=== PATIENT | female | born 1960 | race Caucasian/White ===

== ENCOUNTER 2019-02-05 10:37 | Emergency (ER) | payer OTHER, SELFPAY ==
[2019-02-05 10:37] VITALS: BP 109/52; PULSE 48; RESP 18; TEMP 36.8; O2SAT 99
--- NOTE | 2019-02-05 10:48 | DI.RAD.S_ITS ---
PROCEDURE: XR SACRUM COCCYX MIN 2V INDICATIONS: fall, pain lumbar / sacral area TECHNIQUE: 3 views of the sacrum and coccyx acquired. COMPARISON: None. FINDINGS: Bones: Appearance of fracture is identified on the anterior aspect of L3 including the superior endplate. Soft tissues: Visualized bowel gas pattern is normal. No suspicious soft tissue densities. IMPRESSION: Appearance of L3 fracture appearing acute/subacute as above. As clinically indicated, CT may be obtained for further evaluation. Dictated by: Nikkie Torres M.D. on 02/05/2019 at 12:06 Approved by: Nikkie Torres M.D. on 02/05/2019 at 12:07
--- NOTE | 2019-02-05 10:48 | DI.RAD.S_ITS ---
PROCEDURE: XR LUMBAR SPINE 2-3V INDICATIONS: fall, pain lumbar sacral TECHNIQUE: 3 views of the lumbar spine were acquired. COMPARISON: None. FINDINGS: Bones: 5 [id number] vertebrae are present. There is trace retrolithesis of L1 on L2, L2 on L3, L3 on L4. There is an appearance of fracture at the anterior aspect of L3 involving the superior endplate.. No suspicious bony lesions. Soft tissues: Overlying bowel gas pattern is normal. No suspicious soft tissue calcifications. IMPRESSION: Appearance of acute/subacute anterior fracture at L3. CT may be obtained as clinically indicated for further evaluation. Dictated by: Nikkie Torres M.D. on 02/05/2019 at 11:39 Approved by: Nikkie Torres M.D. on 02/05/2019 at 12:06
[2019-02-05] MEDS: ACETAMINOPHEN 325 MG TABLET 975 MG PO (11:15)
[2019-02-05] MEDS: CYCLOBENZAPRINE 10 MG TABLET PO (11:42)
--- NOTE | 2019-02-05 12:03 | ED.BACK ---
HPI - Back Pain/Injury <Robyn Patiño, [employer]ER-BC - Last Filed: 02/05/19 20:31> General Chief Complaint: Back Pain/Injury Stated Complaint: GLF, hip and low back pain Time Seen by Provider: 02/05/19 11:06 Source: patient and family Mode of arrival: EMS Limitations: no limitations History of Present Illness HPI Narrative: The patient is a 58-year-old female with history of seizure activity nonsmoker who presents after a ground level fall. She presented by EMS on a backboard prior to my arrival to the emergency department. She states that she was walking her dog, who pulled her to kelvin a rabbit. She let go of the dog, but fell landing on the right side of her buttock. She states the pain was so bad she could not get up. She denies any numbness or tingling. She denies any incontinence of bowel or bladder, she denies any saddle anesthesia. She states that her low back has been hurting for for the past several weeks. She has applied ice and heat at home. She denies hitting her head. She denies any neck pain. She does not take any blood thinners. Related Data Home Medications Medication Instructions Recorded Confirmed diazepam 10 mg PO BID PRN 02/05/19 02/05/19 escitalopram oxalate 10 mg PO DAILY 02/05/19 02/05/19 lacosamide [Vimpat] 50 mg PO QAM 02/05/19 02/05/19 lacosamide [Vimpat] 100 mg PO BEDTIME 02/05/19 02/05/19 levetiracetam [Keppra] 1,250 mg PO BID 02/05/19 02/05/19 Previous Rx's Medication Instructions Recorded lidocaine 1 patch TOP DAILY #15 each 02/05/19 tramadol 50 mg PO TID PRN #10 tab 02/05/19 Allergies Allergy/AdvReac Type Severity Reaction Status Date / Time diphenhydramine Allergy Severe Seizure Verified 02/05/19 10:44 [From Benadryl] ibuprofen Allergy Severe Seizure Verified 02/05/19 10:44 bacitracin Allergy Mild Rash Verified 02/05/19 10:44 [From Neosporin ([id number])] neomycin Allergy Mild Rash Verified 02/05/19 10:44 [From Neosporin ([id number])] polymyxin B Allergy Mild Rash Verified 02/05/19 10:44 [From Neosporin ([id number])] Review of Systems <KATHERINE Sandy - Last Filed: 02/05/19 20:31> Review of Systems GENERAL: Denies chills, fatigue, malaise, fever, sweats. HEENT: Denies sinus pain, ear pain, sore throat, difficulty swallowing, dizziness. RESPIRATORY: Denies dyspnea, cough, wheezing, hemoptysis, sputum. CARDIOVASCULAR: Denies chest pain, palpitations, orthopnea, edema, GASTROINTESTINAL: Denies nausea, vomiting, abdominal pain, diarrhea, constipation, melena. : Denies dysuria, frequency, incontinence, hematuria, urinary retention. MUSCULOSKELETAL: See HPI SKIN: Denies rash, skin lesions, or other NEUROLOGIC: Denies weakness, headache, numbness, change in speech, confusion, seizures, incoordination. PSYCHIATRIC: No concerning psychosocial issues. 12 point review of systems is negative except for those stated above PFSH <KATHERINE Sandy - Last Filed: 02/05/19 20:31> Medical History Seizure (Acute) Social History Smoking Status: Never smoker Social History Smoking Status: Never smoker Exam <KATHERINE Sandy - Last Filed: 02/05/19 20:31> Narrative Exam Narrative: GENERAL: This is a well-nourished, well-developed patient, lying on her back HEAD: Atraumatic. Normocephalic. No temporal or scalp tenderness. EYES: Pupils equal round and reactive. Extraocular motions intact. No scleral icterus. No injection or drainage. ENT: Nose without bleeding, purulent drainage or septal hematoma. Throat without erythema, tonsillar hypertrophy or exudate. Uvula midline. Airway patent. NECK: Trachea midline. No JVD or lymphadenopathy. Supple, nontender, no meningeal signs. CARDIOVASCULAR: Regular rate and rhythm bradycardic per patient's normal RESPIRATORY: Clear to auscultation. Breath sounds equal bilaterally. No wheezes, rales, or rhonchi. No cough. No increased respiratory effort. No accessory muscle use. GASTROINTESTINAL: Abdomen soft, non-tender, nondistended. No hepato-splenomegaly, or palpable masses. No guarding. EXTREMITIES: No clubbing, cyanosis, or edema. No joint tenderness, effusion, or edema noted. Strength is equal upper and lower extremities bilaterally. Positive pedal pulses. BACK: No pain to C-spine or T spine palpation. Pain to palpation of the L-spine and across lower back. Pain to sacral pressure. NEURO: AOx3. SKIN: No rash or erythema. No erythema ecchymosis abrasion laceration noted home lower back Initial Vital Signs Initial Vital Signs: Vital Signs Temperature 98.3 F 02/05/19 10:37 Pulse Rate 48 L 02/05/19 10:37 Respiratory Rate 18 02/05/19 10:37 Blood Pressure 109/52 L 02/05/19 10:37 Pulse Oximetry 99 02/05/19 10:37 <Adeline Bernstein MD - Last Filed: 02/05/19 20:36> Initial Vital Signs Initial Vital Signs: Vital Signs Temperature 98.3 F 02/05/19 10:37 Pulse Rate 48 L 02/05/19 10:37 Respiratory Rate 18 02/05/19 10:37 Blood Pressure 109/52 L 02/05/19 10:37 Pulse Oximetry 99 02/05/19 10:37 Course <JYOTHI Sandy-BC - Last Filed: 02/05/19 20:31> Orders Ordered: ED Orders 02/05/19 12:28 CT lumbar spine wo con Stat 02/05/19 15:04 Complete Blood Count AUTO DIFF Stat Comprehensive Metabolic Panel Stat Discontinued Medications Acetaminophen (Tylenol) 975 mg PO NOW ONE Stop: 02/05/19 10:49 Last Admin: 02/05/19 11:15 Dose: 975 mg Cyclobenzaprine HCl (Flexeril) 10 mg PO NOW ONE Stop: 02/05/19 11:42 Last Admin: 02/05/19 11:42 Dose: 10 mg Sodium Chloride (Normal Saline 0.9%) 1,000 mls @ 1,000 mls/hr IV BOLUS ONE Stop: 02/05/19 15:56 Last Infusion: 02/05/19 16:02 Dose: 0 mls/hr Admin: 02/05/19 15:12 Dose: 1,000 mls/hr Sodium Chloride (Normal Saline 0.9%) 1,000 mls @ 1,000 mls/hr IV BOLUS ONE Stop: 02/05/19 15:56 Last Infusion: 02/05/19 17:10 Dose: 0 mls/hr Admin: 02/05/19 16:03 Dose: 1,000 mls/hr Lidocaine (Lidoderm) 1 each TOP DAILY WHITNEY Last Admin: 02/05/19 16:59 Dose: 1 each Tramadol HCl (Ultram) 50 mg PO NOW ONE Stop: 02/05/19 13:29 Last Admin: 02/05/19 13:47 Dose: 50 mg Vital Signs - 8 hr 02/05/19 15:09 02/05/19 16:32 02/05/19 17:30 Pulse Rate 44 L 60 57 L Respiratory Rate 17 19 17 Blood Pressure [Left Arm] 110/31 L 103/52 L 117/68 Pulse Oximetry 99 99 98 <Adeline Bernstein MD - Last Filed: 02/05/19 20:36> Orders Ordered: ED Orders 02/05/19 12:28 CT lumbar spine wo con Stat 02/05/19 15:04 Complete Blood Count AUTO DIFF Stat Comprehensive Metabolic Panel Stat Discontinued Medications Acetaminophen (Tylenol) 975 mg PO NOW ONE Stop: 02/05/19 10:49 Last Admin: 02/05/19 11:15 Dose: 975 mg Cyclobenzaprine HCl (Flexeril) 10 mg PO NOW ONE Stop: 02/05/19 11:42 Last Admin: 02/05/19 11:42 Dose: 10 mg Sodium Chloride (Normal Saline 0.9%) 1,000 mls @ 1,000 mls/hr IV BOLUS ONE Stop: 02/05/19 15:56 Last Infusion: 02/05/19 16:02 Dose: 0 mls/hr Admin: 02/05/19 15:12 Dose: 1,000 mls/hr Sodium Chloride (Normal Saline 0.9%) 1,000 mls @ 1,000 mls/hr IV BOLUS ONE Stop: 02/05/19 15:56 Last Infusion: 02/05/19 17:10 Dose: 0 mls/hr Admin: 02/05/19 16:03 Dose: 1,000 mls/hr Lidocaine (Lidoderm) 1 each TOP DAILY WHITNEY Last Admin: 02/05/19 16:59 Dose: 1 each Tramadol HCl (Ultram) 50 mg PO NOW ONE Stop: 02/05/19 13:29 Last Admin: 02/05/19 13:47 Dose: 50 mg Vital Signs - 8 hr 02/05/19 15:09 02/05/19 16:32 02/05/19 17:30 Pulse Rate 44 L 60 57 L Respiratory Rate 17 19 17 Blood Pressure [Left Arm] 110/31 L 103/52 L 117/68 Pulse Oximetry 99 99 98 MDM - Back Pain/Injury <JYOTHI Sandy- - Last Filed: 02/05/19 20:31> Lab Data Result diagrams: 02/05/19 15:04 02/05/19 15:04 Lab Results 02/05/19 02/05/19 Range/Units 15:04 15:04 WBC 10.1 (4.5-11.0) X10^3/uL RBC 4.43 (4.0-5.2) X10^6/uL Hgb 13.6 (12.0-16.0) g/dL Hct 39.4 (36-46) % MCV 89.0 (80-100) fL MCH 30.6 (26-34) PG MCHC 34.4 (30-36) % RDW 13.4 (11.6-14.8) % Plt Count 207 (150-400) X10^3/uL Neut % (Auto) 70.2 (50-75) % Lymph % (Auto) 22.8 L (25-40) % [place] % (Auto) 6.2 (3-14) % Eos % (Auto) 0.3 L (2-4) % Baso % (Auto) 0.5 (0-2) % Neut # (Auto) 7100 H (6674-0787) /uL Lymph # (Auto) 2300 (0037-9404) /uL [place] # (Auto) 600 (0-900) /uL Eos # (Auto) 0 (0-450) /uL Baso # (Auto) 100 (0-100) /uL Sodium 142 (137-145) mmol/L Potassium 3.7 (3.4-5.1) mmol/L Chloride 105 (98-107) mmol/L Carbon Dioxide 28 (22-32) mmol/L BUN 12 (7-17) mg/dL Creatinine 0.80 (0.52-1.04) mg/dL Estimated GFR > 60.0 (>60) mL/min BUN/Creatinine Ratio 15.0 (6-22) Glucose 123 H (70-100) mg/dL Calcium 9.3 (8.4-10.2) mg/dL Total Bilirubin 0.6 (0.2-1.3) mg/dL AST 31 (14-36) IU/L ALT 24 (9-52) IU/L Alkaline Phosphatase 82 (38-126) U/L Total Protein 7.7 (6.3-8.2) g/dL Albumin 4.5 (3.5-5.0) g/dL Globulin 3.2 (1.7-4.1) g/dL Albumin/Globulin Ratio 1.4 (1.0-2.8) Imaging Data Sacral x-ray: Radiologist's impression: Ellen Khalil 58 F 1960 [place] [address] XRay Report Signed Patient: Bruna KhalilKindraDelbert#: [id number] : [id number]:[id number] Age/Sex: 58 / FDate of Service: 02/05/19 Loc: ED Accession Number: [id number] Procedure: XR sacrum coccyx min 2V Ordering Provider: Adeline Bernstein MD PROCEDURE: XR SACRUM COCCYX MIN 2V INDICATIONS: fall, pain lumbar / sacral area TECHNIQUE: 3 views of the sacrum and coccyx acquired. COMPARISON: None. FINDINGS: Bones: Appearance of fracture is identified on the anterior aspect of L3 including the superior endplate. Soft tissues: Visualized bowel gas pattern is normal. No suspicious soft tissue densities. IMPRESSION: Appearance of L3 fracture appearing acute/subacute as above. As clinically indicated, CT may be obtained for further evaluation. Dictated by: Nikkie Torres M.D. on 02/05/2019 at 12:06 Approved by: Nikkie Torres M.D. on 02/05/2019 at 12:07 Lumbar x-ray: Radiologist's impression: Ellen Khalil F [address] [address] XRay Report Signed Patient: Cuauhtemoc Khalil#: [id number] : [id number]:[id number] Age/Sex: 58 / FDate of Service: 02/05/19 Loc: ED Accession Number: [id number] Procedure: XR lumbar spine 2-3V Ordering Provider: Adeline Bernstein MD PROCEDURE: XR LUMBAR SPINE 2-3V INDICATIONS: fall, pain lumbar sacral TECHNIQUE: 3 views of the lumbar spine were acquired. COMPARISON: None. FINDINGS: Bones: 5 [id number] vertebrae are present. There is trace retrolithesis of L1 on L2, L2 on L3, L3 on L4. There is an appearance of fracture at the anterior aspect of L3 involving the superior endplate.. No suspicious bony lesions. Soft tissues: Overlying bowel gas pattern is normal. No suspicious soft tissue calcifications. IMPRESSION: Appearance of acute/subacute anterior fracture at L3. CT may be obtained as clinically indicated for further evaluation. Dictated by: Nikkie Torres M.D. on 02/05/2019 at 11:39 Approved by: Nikkie Torres M.D. on 02/05/2019 at 12:[address]: Radiologist's impression: [address] [address] [address] Scan Report Signed Patient: Cuauhtemoc Khalil#: [id number] : [id number]:[id number] Age/Sex: 58 / FDate of Service: 02/05/19 Loc: ED Accession Number: [id number] Procedure: CT lumbar spine wo con Ordering Provider: Robyn Patiño-ROSEY PROCEDURE: CT LUMBAR SPINE WO CON INDICATIONS: acute/subacute L3 fx on xray TECHNIQUE: Noncontrast 3 mm thick sections acquired from the T12 level to the sacrum. Sagittal and coronal reformats were constructed. For radiation dose reduction, the following was used: automated exposure control. COMPARISON: [facility], CR, XR LUMBAR SPINE 2-3V, 02/05/2019, 10:49. FINDINGS: Image quality: Excellent. Bones: There is a comminuted fracture within the L3 vertebral body with questionable very minimal prevertebral fluid. There is an overall 33% compression deformity. Most significant portion of the fracture is in the anterior aspect of the vertebral body, small subtle fracture lines are also identified in the middle and posterior third. No portion of the fracture appears to extend to the pedicles. No spinal stenosis. There is a very minimal superior endplate deformity at L2. Scattered minimal multilevel disc bulges are present. There is no spinal stenosis. Mild left foraminal narrowing is present at L4-5. Soft tissues: No retroperitoneal masses or hematomas. Visualized aorta is normal in caliber. IMPRESSION: 1. Comminuted fracture within L3 as described above appearing to be acute/subacute. No associated spinal stenosis. 2. Minimal superior endplate deformity at L2 considered suspected to be chronic. However, given history of recent trauma, subacute etiology cannot be definitively excluded. Dictated by: Nikkie Torres M.D. on 02/05/2019 at 12:44 Approved by: Nikkie Torres M.D. on 02/05/2019 at 12:48 [facility] Narrative Medical decision making narrative: The patient is a 58-year-old female nonsmoker presents after ground level fall. Imaging revealed a L3 fracture, likely acute or subacute. The patient repeatedly declined narcotic pain medication as well as anti-inflammatories, stating they give her seizures. A given the x-ray results, I obtained a CT of her lumbar spine. I spoke with Dr. Reyes from [facility] who viewed her films. She is neurologically intact. The patient later stated she would take some tramadol, was able to ambulate to the restroom. While in the restroom, she had an episode of weakness and sweating. She was able to get back to the bed safely, with staff assistance. She was given an IV as well as 2 L of fluid and basic labs were checked. Afterwards she was able to ambulate well. She felt much improved after IV fluids. She was able to tolerate fluids and soup. She stated her lidocaine patch improved greatly. I discussed at length follow up with Orthopedics, which she range prior to leaving the emergency department. I discussed coming back to the emergency department for any acute concerns such as incontinence of bowel, incontinence of bladder or numbness in the groin area. Patient was discharged with her and had no questions or concerns upon discharge. <Adeline Bernstein MD - Last Filed: 02/05/19 20:36> Lab Data Lab Results 02/05/19 02/05/19 Range/Units 15:04 15:04 WBC 10.1 (4.5-11.0) X10^3/uL RBC 4.43 (4.0-5.2) X10^6/uL Hgb 13.6 (12.0-16.0) g/dL Hct 39.4 (36-46) % MCV 89.0 (80-100) fL MCH 30.6 (26-34) PG MCHC 34.4 (30-36) % RDW 13.4 (11.6-14.8) % Plt Count 207 (150-400) X10^3/uL Neut % (Auto) 70.2 (50-75) % Lymph % (Auto) 22.8 L (25-40) % [place] % (Auto) 6.2 (3-14) % Eos % (Auto) 0.3 L (2-4) % Baso % (Auto) 0.5 (0-2) % Neut # (Auto) 7100 H (2005-7211) /uL Lymph # (Auto) 2300 (2331-3077) /uL [place] # (Auto) 600 (0-900) /uL Eos # (Auto) 0 (0-450) /uL Baso # (Auto) 100 (0-100) /uL Sodium 142 (137-145) mmol/L Potassium 3.7 (3.4-5.1) mmol/L Chloride 105 (98-107) mmol/L Carbon Dioxide 28 (22-32) mmol/L BUN 12 (7-17) mg/dL Creatinine 0.80 (0.52-1.04) mg/dL Estimated GFR > 60.0 (>60) mL/min BUN/Creatinine Ratio 15.0 (6-22) Glucose 123 H (70-100) mg/dL Calcium 9.3 (8.4-10.2) mg/dL Total Bilirubin 0.6 (0.2-1.3) mg/dL AST 31 (14-36) IU/L ALT 24 (9-52) IU/L Alkaline Phosphatase 82 (38-126) U/L Total Protein 7.7 (6.3-8.2) g/dL Albumin 4.5 (3.5-5.0) g/dL Globulin 3.2 (1.7-4.1) g/dL Albumin/Globulin Ratio 1.4 (1.0-2.8) Discharge Plan Departure Patient Disposition: Home Clinical Impression: Fall from ground level Closed L3 vertebral fracture Qualifiers: Encounter type: initial encounter Fracture morphology: unspecified fracture morphology Qualified Code(s): S32.039A - Unspecified fracture of third lumbar vertebra, initial encounter for closed fracture Discharge Date/Time: 02/05/19 18:05 Interventions: ED Discharge Assessment Last Done: 02/05/19 18:03 Instructions: How to Choose and Use a Walker, DI for Vertebral Fracture, DI for Low Back Pain Activity Restrictions/Additional Instructions: Please follow-up with [facility] as well as primary care provider. I spoke with Dr. Reyes from [facility]. Please use Tylenol as well as the prescriptions as needed for pain control. Come back to the emergency department for any incontinence of bowel, incontinence of bladder or numbness where you would sit on a horse. Please come back to the emergency department for any acute concerns. I also suggest use of ice for now. Prescriptions: New tramadol 50 mg tablet 50 mg PO TID PRN (Reason: pain) Qty: 10 RF: 0 lidocaine 5 % adhesive patch,medicated 1 patch TOP DAILY Qty: 15 RF: 0 No Action Vimpat 100 mg Tablet 100 mg PO BEDTIME RF: 0 levetiracetam [Keppra] 250 mg Tablet 1,250 mg PO BID RF: 0 Vimpat 50 mg Tablet 50 mg PO QAM RF: 0 diazepam 10 mg Tablet 10 mg PO BID PRN (Reason: Seizure Activity) RF: 0 escitalopram oxalate 10 mg Tablet 10 mg PO DAILY RF: 0 Referrals: [facility] [Provider Group]
--- NOTE | 2019-02-05 12:28 | DI.CT.S_ITS ---
PROCEDURE: CT LUMBAR SPINE WO CON INDICATIONS: acute/subacute L3 fx on xray TECHNIQUE: Noncontrast 3 mm thick sections acquired from the T12 level to the sacrum. Sagittal and coronal reformats were constructed. For radiation dose reduction, the following was used: automated exposure control. COMPARISON: [facility], CR, XR LUMBAR SPINE 2-3V, 02/05/2019, 10:49. FINDINGS: Image quality: Excellent. Bones: There is a comminuted fracture within the L3 vertebral body with questionable very minimal prevertebral fluid. There is an overall 33% compression deformity. Most significant portion of the fracture is in the anterior aspect of the vertebral body, small subtle fracture lines are also identified in the middle and posterior third. No portion of the fracture appears to extend to the pedicles. No spinal stenosis. There is a very minimal superior endplate deformity at L2. Scattered minimal multilevel disc bulges are present. There is no spinal stenosis. Mild left foraminal narrowing is present at L4-5. Soft tissues: No retroperitoneal masses or hematomas. Visualized aorta is normal in caliber. IMPRESSION: 1. Comminuted fracture within L3 as described above appearing to be acute/subacute. No associated spinal stenosis. 2. Minimal superior endplate deformity at L2 considered suspected to be chronic. However, given history of recent trauma, subacute etiology cannot be definitively excluded. Dictated by: Nikkie Torres M.D. on 02/05/2019 at 12:44 Approved by: Nikkie Torres M.D. on 02/05/2019 at 12:48
[2019-02-05] MEDS: TRAMADOL 50 MG TABLET PO (13:47)
[2019-02-05 15:09] VITALS: BP 110/31; PULSE 44; RESP 17; O2SAT 99
--- NOTE | 2019-02-05 15:09 | PC.NURSE ---
Pt ambulated to bathroom with standby assist. After being on toilet, she became very diaphoretic and lightheaded stating she is going to pass out. Unable to obtain blood pressure reading with automatic cuff. Blood glucose of 118. Unable to get her off toilet safely for 20 minutes until she felt able to stand and transfer. Assisted to stretcher. Patient's symptoms began to resolve upon lying supine.
[2019-02-05] MEDS: SODIUM CHLORIDE 0.9% 1,000 ML 1000 ML IV ×2 (15:12→16:03)
[2019-02-05 15:17] LABS: Add Manual Diff / Slide Review NO; Basophils Absolute Auto 100 /uL (0-100); Basophils Percent Auto 0.5 % (0-2); Eosinophils Absolute Auto 0 /uL (0-450); Eosinophils Percent Auto 0.3 % (2-4); Hematocrit 39.4 % (36-46); Hemoglobin 13.6 g/dL (12.0-16.0); Lymphocytes Absolute Auto 2300 /uL (1100-4500); Lymphocytes Percent Auto 22.8 % (25-40); Mean Corpuscular HGB Conc 34.4 % (30-36); Mean Corpuscular Hemoglobin 30.6 PG (26-34); Monocytes Absolute Auto 600 /uL (0-900); Monocytes Percent Auto 6.2 % (3-14); Neutrophils Absolute Auto 7100 /uL (1500-7000); Neutrophils Percent Auto 70.2 % (50-75); Platelet Count 207 X10^3/uL (150-400); Red Blood Cell Count 4.43 X10^6/uL (4.0-5.2); Red Cell Distribution Width 13.4 % (11.6-14.8); White Blood Cell Count 10.1 X10^3/uL (4.5-11.0)
[2019-02-05 15:30] LABS: Alanine Aminotransferase 24 IU/L (9-52); Albumin 4.5 g/dL (3.5-5.0); Albumin Globulin Ratio 1.4 (1.0-2.8); Alkaline Phosphatase 82 U/L (38-126); Aspartate Aminotransferase 31 IU/L (14-36); Bilirubin Total 0.6 mg/dL (0.2-1.3); Blood Urea Nitrogen 12 mg/dL (7-17); Calcium 9.3 mg/dL (8.4-10.2); Carbon Dioxide 28 mmol/L (22-32); Chloride 105 mmol/L (98-107); Estimated Glomerular Filt Rate > 60.0 mL/min (>60); Globulin 3.2 g/dL (1.7-4.1); Glucose 123 mg/dL (70-100); HEMOLYSIS < 15 (0-50); Potassium 3.7 mmol/L (3.4-5.1); Sodium 142 mmol/L (137-145); Total Protein 7.7 g/dL (6.3-8.2)
--- NOTE | 2019-02-05 16:14 | ED_ITS ---
HPI - Back Pain/Injury <Robyn Patiño, FAMILY RESOURCE MANAGEMENT SPECIALIST-BC - Last Filed: 02/05/19 20:31> General Chief Complaint: Back Pain/Injury Stated Complaint: GLF, hip and low back pain Time Seen by Provider: 02/05/19 11:06 Source: patient and family Mode of arrival: EMS Limitations: no limitations History of Present Illness HPI Narrative: The patient is a 58-year-old female with history of seizure activity nonsmoker who presents after a ground level fall. She presented by EMS on a backboard prior to my arrival to the emergency department. She states that she was walking her dog, who pulled her to kelvin a rabbit. She let go of the dog, but fell landing on the right side of her buttock. She states the pain was so bad she could not get up. She denies any numbness or tingling. She denies any incontinence of bowel or bladder, she denies any saddle anesthesia. She states that her low back has been hurting for for the past several weeks. She has applied ice and heat at home. She denies hitting her head. She denies any neck pain. She does not take any blood thinners. Related Data Home Medications Medication Instructions Recorded Confirmed diazepam 10 mg PO BID PRN 02/05/19 02/05/19 escitalopram oxalate 10 mg PO DAILY 02/05/19 02/05/19 lacosamide [Vimpat] 50 mg PO QAM 02/05/19 02/05/19 lacosamide [Vimpat] 100 mg PO BEDTIME 02/05/19 02/05/19 levetiracetam [Keppra] 1,250 mg PO BID 02/05/19 02/05/19 Previous Rx's Medication Instructions Recorded lidocaine 1 patch TOP DAILY #15 each 02/05/19 tramadol 50 mg PO TID PRN #10 tab 02/05/19 Allergies Allergy/AdvReac Type Severity Reaction Status Date / Time diphenhydramine Allergy Severe Seizure Verified 02/05/19 10:44 [From Benadryl] ibuprofen Allergy Severe Seizure Verified 02/05/19 10:44 bacitracin Allergy Mild Rash Verified 02/05/19 10:44 [From Neosporin ([id number])] neomycin Allergy Mild Rash Verified 02/05/19 10:44 [From Neosporin ([id number])] polymyxin B Allergy Mild Rash Verified 02/05/19 10:44 [From Neosporin ([id number])] Review of Systems <KATHERINE Sandy - Last Filed: 02/05/19 20:31> Review of Systems GENERAL: Denies chills, fatigue, malaise, fever, sweats. HEENT: Denies sinus pain, ear pain, sore throat, difficulty swallowing, dizziness. RESPIRATORY: Denies dyspnea, cough, wheezing, hemoptysis, sputum. CARDIOVASCULAR: Denies chest pain, palpitations, orthopnea, edema, GASTROINTESTINAL: Denies nausea, vomiting, abdominal pain, diarrhea, constipation, melena. : Denies dysuria, frequency, incontinence, hematuria, urinary retention. MUSCULOSKELETAL: See HPI SKIN: Denies rash, skin lesions, or other NEUROLOGIC: Denies weakness, headache, numbness, change in speech, confusion, seizures, incoordination. PSYCHIATRIC: No concerning psychosocial issues. 12 point review of systems is negative except for those stated above PFSH <KATHERINE Sandy - Last Filed: 02/05/19 20:31> Medical History Seizure (Acute) Social History Smoking Status: Never smoker Social History Smoking Status: Never smoker Exam <KATHERINE Sandy - Last Filed: 02/05/19 20:31> Narrative Exam Narrative: GENERAL: This is a well-nourished, well-developed patient, lying on her back HEAD: Atraumatic. Normocephalic. No temporal or scalp tenderness. EYES: Pupils equal round and reactive. Extraocular motions intact. No scleral icterus. No injection or drainage. ENT: Nose without bleeding, purulent drainage or septal hematoma. Throat without erythema, tonsillar hypertrophy or exudate. Uvula midline. Airway patent. NECK: Trachea midline. No JVD or lymphadenopathy. Supple, nontender, no meningeal signs. CARDIOVASCULAR: Regular rate and rhythm bradycardic per patient's normal RESPIRATORY: Clear to auscultation. Breath sounds equal bilaterally. No wheezes, rales, or rhonchi. No cough. No increased respiratory effort. No accessory muscle use. GASTROINTESTINAL: Abdomen soft, non-tender, nondistended. No hepato- splenomegaly, or palpable masses. No guarding. EXTREMITIES: No clubbing, cyanosis, or edema. No joint tenderness, effusion, or edema noted. Strength is equal upper and lower extremities bilaterally. Positive pedal pulses. BACK: No pain to C-spine or T spine palpation. Pain to palpation of the L- spine and across lower back. Pain to sacral pressure. NEURO: AOx3. SKIN: No rash or erythema. No erythema ecchymosis abrasion laceration noted home lower back Initial Vital Signs Initial Vital Signs: Vital Signs Temperature 98.3 F 02/05/19 10:37 Pulse Rate 48 L 02/05/19 10:37 Respiratory Rate 18 02/05/19 10:37 Blood Pressure 109/52 L 02/05/19 10:37 Pulse Oximetry 99 02/05/19 10:37 <Adeline Bernstein MD - Last Filed: 02/05/19 20:36> Initial Vital Signs Initial Vital Signs: Vital Signs Temperature 98.3 F 02/05/19 10:37 Pulse Rate 48 L 02/05/19 10:37 Respiratory Rate 18 02/05/19 10:37 Blood Pressure 109/52 L 02/05/19 10:37 Pulse Oximetry 99 02/05/19 10:37 Course <JYOTHI Sandy-BC - Last Filed: 02/05/19 20:31> Orders Ordered: ED Orders 02/05/19 12:28 CT lumbar spine wo con Stat 02/05/19 15:04 Complete Blood Count AUTO DIFF Stat Comprehensive Metabolic Panel Stat Discontinued Medications Acetaminophen (Tylenol) 975 mg PO NOW ONE Stop: 02/05/19 10:49 Last Admin: 02/05/19 11:15 Dose: 975 mg Cyclobenzaprine HCl (Flexeril) 10 mg PO NOW ONE Stop: 02/05/19 11:42 Last Admin: 02/05/19 11:42 Dose: 10 mg Sodium Chloride (Normal Saline 0.9%) 1,000 mls @ 1,000 mls/hr IV BOLUS ONE Stop: 02/05/19 15:56 Last Infusion: 02/05/19 16:02 Dose: 0 mls/hr Admin: 02/05/19 15:12 Dose: 1,000 mls/hr Sodium Chloride (Normal Saline 0.9%) 1,000 mls @ 1,000 mls/hr IV BOLUS ONE Stop: 02/05/19 15:56 Last Infusion: 02/05/19 17:10 Dose: 0 mls/hr Admin: 02/05/19 16:03 Dose: 1,000 mls/hr Lidocaine (Lidoderm) 1 each TOP DAILY WHITNEY Last Admin: 02/05/19 16:59 Dose: 1 each Tramadol HCl (Ultram) 50 mg PO NOW ONE Stop: 02/05/19 13:29 Last Admin: 02/05/19 13:47 Dose: 50 mg Vital Signs - 8 hr 02/05/19 15:09 02/05/19 16:32 02/05/19 17:30 Pulse Rate 44 L 60 57 L Respiratory Rate 17 19 17 Blood Pressure [Left Arm] 110/31 L 103/52 L 117/68 Pulse Oximetry 99 99 98 <Adeline Bernstein MD - Last Filed: 02/05/19 20:36> Orders Ordered: ED Orders 02/05/19 12:28 CT lumbar spine wo con Stat 02/05/19 15:04 Complete Blood Count AUTO DIFF Stat Comprehensive Metabolic Panel Stat Discontinued Medications Acetaminophen (Tylenol) 975 mg PO NOW ONE Stop: 02/05/19 10:49 Last Admin: 02/05/19 11:15 Dose: 975 mg Cyclobenzaprine HCl (Flexeril) 10 mg PO NOW ONE Stop: 02/05/19 11:42 Last Admin: 02/05/19 11:42 Dose: 10 mg Sodium Chloride (Normal Saline 0.9%) 1,000 mls @ 1,000 mls/hr IV BOLUS ONE Stop: 02/05/19 15:56 Last Infusion: 02/05/19 16:02 Dose: 0 mls/hr Admin: 02/05/19 15:12 Dose: 1,000 mls/hr Sodium Chloride (Normal Saline 0.9%) 1,000 mls @ 1,000 mls/hr IV BOLUS ONE Stop: 02/05/19 15:56 Last Infusion: 02/05/19 17:10 Dose: 0 mls/hr Admin: 02/05/19 16:03 Dose: 1,000 mls/hr Lidocaine (Lidoderm) 1 each TOP DAILY WHITNEY Last Admin: 02/05/19 16:59 Dose: 1 each Tramadol HCl (Ultram) 50 mg PO NOW ONE Stop: 02/05/19 13:29 Last Admin: 02/05/19 13:47 Dose: 50 mg Vital Signs - 8 hr 02/05/19 15:09 02/05/19 16:32 02/05/19 17:30 Pulse Rate 44 L 60 57 L Respiratory Rate 17 19 17 Blood Pressure [Left Arm] 110/31 L 103/52 L 117/68 Pulse Oximetry 99 99 98 MDM - Back Pain/Injury <JYOTHI Sandy- - Last Filed: 02/05/19 20:31> Lab Data Result diagrams: 02/05/19 15:04 02/05/19 15:04 Lab Results 02/05/19 02/05/19 Range/Units 15:04 15:04 WBC 10.1 (4.5-11.0) X10^3/uL RBC 4.43 (4.0-5.2) X10^6/uL Hgb 13.6 (12.0-16.0) g/dL Hct 39.4 (36-46) % MCV 89.0 (80-100) fL MCH 30.6 (26-34) PG MCHC 34.4 (30-36) % RDW 13.4 (11.6-14.8) % Plt Count 207 (150-400) X10^3/uL Neut % (Auto) 70.2 (50-75) % Lymph % (Auto) 22.8 L (25-40) % [place] % (Auto) 6.2 (3-14) % Eos % (Auto) 0.3 L (2-4) % Baso % (Auto) 0.5 (0-2) % Neut # (Auto) 7100 H (7527-4167) /uL Lymph # (Auto) 2300 (8563-5634) /uL [place] # (Auto) 600 (0-900) /uL Eos # (Auto) 0 (0-450) /uL Baso # (Auto) 100 (0-100) /uL Sodium 142 (137-145) mmol/L Potassium 3.7 (3.4-5.1) mmol/L Chloride 105 (98-107) mmol/L Carbon Dioxide 28 (22-32) mmol/L BUN 12 (7-17) mg/dL Creatinine 0.80 (0.52-1.04) mg/dL Estimated GFR > 60.0 (>60) mL/min BUN/Creatinine Ratio 15.0 (6-22) Glucose 123 H (70-100) mg/dL Calcium 9.3 (8.4-10.2) mg/dL Total Bilirubin 0.6 (0.2-1.3) mg/dL AST 31 (14-36) IU/L ALT 24 (9-52) IU/L Alkaline Phosphatase 82 (38-126) U/L Total Protein 7.7 (6.3-8.2) g/dL Albumin 4.5 (3.5-5.0) g/dL Globulin 3.2 (1.7-4.1) g/dL Albumin/Globulin Ratio 1.4 (1.0-2.8) Imaging Data Sacral x-ray: Radiologist's impression: Ellen Khalil 58 F 1960 [place] [address] XRay Report Signed Patient: Bruna KhalilKindraDelbert#: [id number] : [id number]:[id number] Age/Sex: 58 / FDate of Service: 02/05/19 Loc: ED Accession Number: [id number] Procedure: XR sacrum coccyx min 2V Ordering Provider: Adeline Bernstein MD PROCEDURE: XR SACRUM COCCYX MIN 2V INDICATIONS: fall, pain lumbar / sacral area TECHNIQUE: 3 views of the sacrum and coccyx acquired. COMPARISON: None. FINDINGS: Bones: Appearance of fracture is identified on the anterior aspect of L3 including the superior endplate. Soft tissues: Visualized bowel gas pattern is normal. No suspicious soft tissue densities. IMPRESSION: Appearance of L3 fracture appearing acute/subacute as above. As clinically indicated, CT may be obtained for further evaluation. Dictated by: Nikkie Torres M.D. on 02/05/2019 at 12:06 Approved by: Nikkie Torres M.D. on 02/05/2019 at 12:07 Lumbar x-ray: Radiologist's impression: Ellen Khalil F [address] [address] XRay Report Signed Patient: Cuauhtemoc Khalil#: [id number] : [id number]:[id number] Age/Sex: 58 / FDate of Service: 02/05/19 Loc: ED Accession Number: [id number] Procedure: XR lumbar spine 2-3V Ordering Provider: Adeline Bernstein MD PROCEDURE: XR LUMBAR SPINE 2-3V INDICATIONS: fall, pain lumbar sacral TECHNIQUE: 3 views of the lumbar spine were acquired. COMPARISON: None. FINDINGS: Bones: 5 [id number] vertebrae are present. There is trace retrolithesis of L1 on L2, L2 on L3, L3 on L4. There is an appearance of fracture at the anterior aspect of L3 involving the superior endplate.. No suspicious bony lesions. Soft tissues: Overlying bowel gas pattern is normal. No suspicious soft tissue calcifications. IMPRESSION: Appearance of acute/subacute anterior fracture at L3. CT may be obtained as clinically indicated for further evaluation. Dictated by: Nikkie Torres M.D. on 02/05/2019 at 11:39 Approved by: Nikkie Torres M.D. on 02/05/2019 at 12:[address]: Radiologist's impression: [address] [address] [address] Scan Report Signed Patient: Cuauhtemoc Khalil#: [id number] : [id number]:[id number] Age/Sex: 58 / FDate of Service: 02/05/19 Loc: ED Accession Number: [id number] Procedure: CT lumbar spine wo con Ordering Provider: Robyn Patiño-ROSEY PROCEDURE: CT LUMBAR SPINE WO CON INDICATIONS: acute/subacute L3 fx on xray TECHNIQUE: Noncontrast 3 mm thick sections acquired from the T12 level to the sacrum. Sagittal and coronal reformats were constructed. For radiation dose reduction, the following was used: automated exposure control. COMPARISON: [facility], CR, XR LUMBAR SPINE 2-3V, 02/05/2019, 10:49. FINDINGS: Image quality: Excellent. Bones: There is a comminuted fracture within the L3 vertebral body with questionable very minimal prevertebral fluid. There is an overall 33% compression deformity. Most significant portion of the fracture is in the anterior aspect of the vertebral body, small subtle fracture lines are also identified in the middle and posterior third. No portion of the fracture appears to extend to the pedicles. No spinal stenosis. There is a very minimal superior endplate deformity at L2. Scattered minimal multilevel disc bulges are present. There is no spinal stenos is. Mild left foraminal narrowing is present at L4-5. Soft tissues: No retroperitoneal masses or hematomas. Visualized aorta is normal in caliber. IMPRESSION: 1. Comminuted fracture within L3 as described above appearing to be acute/subacute. No associated spinal stenosis. 2. Minimal superior endplate deformity at L2 considered suspected to be chronic. However, given history of recent trauma, subacute etiology cannot be definitively excluded. Dictated by: Nikkie Torres M.D. on 02/05/2019 at 12:44 Approved by: Nikkie Torres M.D. on 02/05/2019 at 12:48 [facility] Narrative Medical decision making narrative: The patient is a 58-year-old female nonsmoker presents after ground level fall. Imaging revealed a L3 fracture, likely acute or subacute. The patient repeatedly declined narcotic pain medication as well as anti-inflammatories, stating they give her seizures. A given the x-ray results, I obtained a CT of her lumbar spine. I spoke with Dr. Reyes from [facility] who viewed her films. She is neurologically intact. The patient later stated she would take some tramadol, was able to ambulate to the restroom. While in the restroom, she had an episode of weakness and sweating. She was able to get back to the bed safely, with staff assistance. She was given an IV as well as 2 L of fluid and basic labs were checked. Afterwards she was able to ambulate well. She felt much improved after IV fluids. She was able to tolerate fluids and soup. She stated her lidocaine patch improved greatly. I discussed at length follow up with Orthopedics, which she range prior to leaving the emergency department. I discussed coming back to the emergency department for any acute concerns such as incontinence of bowel, incontinence of bladder or numbness in the groin area. Patient was discharged with her and had no questions or concerns upon discharge. <Adeline Bernstein MD - Last Filed: 02/05/19 20:36> Lab Data Lab Results 02/05/19 02/05/19 Range/Units 15:04 15:04 WBC 10.1 (4.5-11.0) X10^3/uL RBC 4.43 (4.0-5.2) X10^6/uL Hgb 13.6 (12.0-16.0) g/dL Hct 39.4 (36-46) % MCV 89.0 (80-100) fL MCH 30.6 (26-34) PG MCHC 34.4 (30-36) % RDW 13.4 (11.6-14.8) % Plt Count 207 (150-400) X10^3/uL Neut % (Auto) 70.2 (50-75) % Lymph % (Auto) 22.8 L (25-40) % [place] % (Auto) 6.2 (3-14) % Eos % (Auto) 0.3 L (2-4) % Baso % (Auto) 0.5 (0-2) % Neut # (Auto) 7100 H (6267-7835) /uL Lymph # (Auto) 2300 (1396-9100) /uL [place] # (Auto) 600 (0-900) /uL Eos # (Auto) 0 (0-450) /uL Baso # (Auto) 100 (0-100) /uL Sodium 142 (137-145) mmol/L Potassium 3.7 (3.4-5.1) mmol/L Chloride 105 (98-107) mmol/L Carbon Dioxide 28 (22-32) mmol/L BUN 12 (7-17) mg/dL Creatinine 0.80 (0.52-1.04) mg/dL Estimated GFR > 60.0 (>60) mL/min BUN/Creatinine Ratio 15.0 (6-22) Glucose 123 H (70-100) mg/dL Calcium 9.3 (8.4-10.2) mg/dL Total Bilirubin 0.6 (0.2-1.3) mg/dL AST 31 (14-36) IU/L ALT 24 (9-52) IU/L Alkaline Phosphatase 82 (38-126) U/L Total Protein 7.7 (6.3-8.2) g/dL Albumin 4.5 (3.5-5.0) g/dL Globulin 3.2 (1.7-4.1) g/dL Albumin/Globulin Ratio 1.4 (1.0-2.8) Discharge Plan Departure Patient Disposition: Home Clinical Impression: Fall from ground level Closed L3 vertebral fracture Qualifiers: Encounter type: initial encounter Fracture morphology: unspecified fracture morphology Qualified Code(s): S32.039A - Unspecified fracture of third lumbar vertebra, initial encounter for closed fracture Discharge Date/Time: 02/05/19 18:05 Interventions: ED Discharge Assessment Last Done: 02/05/19 18:03 Instructions: How to Choose and Use a Walker, DI for Vertebral Fracture, DI for Low Back Pain Activity Restrictions/Additional Instructions: Please follow-up with [facility] as well as primary care provider. I spoke with Dr. Reyes from [facility]. Please use Tylenol as well as the prescriptions as needed for pain control. Come back to the emergency department for any incontinence of bowel, incontinence of bladder or numbness where you would sit on a horse. Please come back to the emergency department for any acute concerns. I also suggest use of ice for now. Prescriptions: New tramadol 50 mg tablet 50 mg PO TID PRN (Reason: pain) Qty: 10 RF: 0 lidocaine 5 % adhesive patch,medicated 1 patch TOP DAILY Qty: 15 RF: 0 No Action Vimpat 100 mg Tablet 100 mg PO BEDTIME RF: 0 levetiracetam [Keppra] 250 mg Tablet 1,250 mg PO BID RF: 0 Vimpat 50 mg Tablet 50 mg PO QAM RF: 0 diazepam 10 mg Tablet 10 mg PO BID PRN (Reason: Seizure Activity) RF: 0 escitalopram oxalate 10 mg Tablet 10 mg PO DAILY RF: 0 Referrals: [facility] [Provider Group]
[2019-02-05 16:32] VITALS: BP 103/52; PULSE 60; RESP 19; O2SAT 99
[2019-02-05] MEDS: LIDOCAINE PATCH 1 EACH ADH..PATCH TOP (16:59)
[2019-02-05 17:30] VITALS: BP 117/68; PULSE 57; RESP 17; O2SAT 98
== END 2019-02-05 18:05 | disposition home or self-care (01) ==
PROVIDERS: Emergency Provider Nurse Practitioner Family
DX: S32.039A Unspecified fracture of third lumbar vertebra, initial encounter for closed fracture (principal); W18.30XA Fall on same level, unspecified, initial encounter
CPT/HCPCS: 36591; 72100; 72131; 72220; 80053; 85025; 96360; 96361; 99284; 99285

== ENCOUNTER → 2019-04-25 12:46 | Outpatient (CLI) | payer OTHER, SELFPAY ==
--- NOTE | 2019-04-25 | DI.US.S_ITS ---
LIMITED ULTRASOUND OF RIGHT BREAST: 04/25/2019 CLINICAL: Focal right breast pain. Comparison is made to exam dated: 04/25/2019 [facility]. Color flow and real-time ultrasound of the right breast upper outer quadrant were performed. Stewart scale images of the real-time examination were reviewed. No significant abnormalities were seen sonographically in the right breast. Specifically, no finding to correspond to the patient's pain. IMPRESSION: NEGATIVE There is no sonographic correlate to the patient's pain and no evidence of malignancy. Return to annual mammogram screening schedule is recommended. Findings and recommendations were conveyed to the patient at time of exam. This exam was interpreted at Station ID: [id number]. Electronically Signed By: Aruna scales/:04/25/2019 17:33:21 letter sent: Normal Exam Ultrasound BI-RADS: 1 Negative
--- NOTE | 2019-04-25 | DI.US.S_ITS ---
ULTRASOUND OF LEFT BREAST: 04/25/2019 CLINICAL: Palpable left breast lump. Comparison is made to exam dated: 04/25/2019 [facility]. Color flow and real-time ultrasound of the left breast were performed. Stewart scale images of the real-time examination were reviewed. No significant abnormalities were seen sonographically in the left breast. Specifically, no finding to correspond to the patient's palpable abnormality or pain. IMPRESSION: NEGATIVE There is no sonographic correlate to the patient's palpable abnormality or pain and no evidence of malignancy. Return to annual mammogram screening schedule is recommended. Findings and recommendations were conveyed to the patient at time of exam. This exam was interpreted at Station ID: [id number]. Electronically Signed By: Aruna scales/:04/25/2019 17:31:28 letter sent: Normal Exam Ultrasound BI-RADS: 1 Negative
--- NOTE | 2019-04-25 | DI.MG.S_ITS ---
BILATERAL DIGITAL DIAGNOSTIC MAMMOGRAM 3D/2D: 04/25/2019 CLINICAL: Baseline exam. Right breast pain and Left breast lump. No prior exams were available for comparison. The tissue of both breasts is heterogeneously dense. This may lower the sensitivity of mammography. No significant masses, calcifications, or other findings are seen in either breast. Specifically, no finding to correspond to the patient's palpable abnormality in the left or focal pain in the right. IMPRESSION: INCOMPLETE: NEEDS ADDITIONAL IMAGING EVALUATION There is no mammographic correlate to the patient's left breast palpable abnormality or right breast pain. Ultrasound is recommended for further evaluation of both abnormalities. This was performed immediately following this exam. This exam was interpreted at Station ID: [id number]. NOTE: For mammograms, a report in lay terms will be sent to the patient. Approximately 15% of breast malignancies will not be visualized mammographically. In the management of a palpable breast mass, a negative mammogram must not discourage biopsy of a clinically suspicious lesion. Electronically Signed By: Aruna scales/:04/25/2019 17:28:52 ACR BI-RADS Category 0: Incomplete [id number]
== END ==
PROVIDERS: Visit Provider Family Medicine
DX: R92.8 Other abnormal and inconclusive findings on diagnostic imaging of breast (principal); N64.4 Mastodynia; N63.20 Unspecified lump in the left breast, unspecified quadrant
CPT/HCPCS: 76642; 77066; G0279

== ENCOUNTER → 2019-06-05 17:01 | Outpatient (CLI) | payer OTHER, SELFPAY ==
[2019-06-05 19:33] LABS: Cancer Antigen 125 < 6 U/mL (0-35)
[2019-06-11 16:54] LABS: Human HE4 Antigen 50 pmol/L
== END ==
PROVIDERS: PCP Family Medicine; Visit Provider Obstetrics & Gynecology
DX: N83.201 Unspecified ovarian cyst, right side (principal); N83.202 Unspecified ovarian cyst, left side
CPT/HCPCS: 36415; 86304; 86305; 86900; 86901

== ENCOUNTER → 2019-07-30 12:45 | Outpatient (CLI) | payer OTHER, SELFPAY | PROVIDERS: PCP Family Medicine; Visit Provider Family Medicine | DX: Z13.820 Encounter for screening for osteoporosis (principal); Z78.0 Asymptomatic menopausal state; E07.9 Disorder of thyroid, unspecified; Z82.62 Family history of osteoporosis; Z87.891 Personal history of nicotine dependence | CPT/HCPCS: 77080 ==

== ENCOUNTER → 2020-05-05 12:40 | Outpatient (CLI) | payer OTHER, SELFPAY ==
--- NOTE | 2020-05-05 12:41 | DI.MG.S_ITS ---
BILATERAL DIGITAL DIAGNOSTIC MAMMOGRAM 3D/2D: 05/05/2020 CLINICAL: Family history of breast cancer. Comparison is made to exams dated: 04/25/2019 mammogram - [facility], 02/01/2017 mammogram - [facility], 12/04/2015 mammogram, and 04/25/2019 ultrasound [facility]. The tissue of both breasts is heterogeneously dense. This may lower the sensitivity of mammography. No significant masses, calcifications, or other findings are seen in either breast. Patient denies pain and focal symptoms today. IMPRESSION: NEGATIVE There is no mammographic evidence of malignancy. No significant interval change. Patient denies focal symptoms. Exam findings conveyed to the patient. Patient is advised to return if she palpates a mass. Otherwise, a 1 year screening mammogram is recommended. This exam was interpreted at Station ID: [id number]. NOTE: For mammograms, a report in lay terms will be sent to the patient. Approximately 15% of breast malignancies will not be visualized mammographically. In the management of a palpable breast mass, a negative mammogram must not discourage biopsy of a clinically suspicious lesion. Electronically Signed By: Alfonso Lorenzo M.D. [facility] [place]/:05/05/2020 13:22:34 letter sent: Normal Exam ACR BI-RADS Category 1: Negative [id number]
== END ==
PROVIDERS: PCP Family Medicine; Referring Provider Obstetrics & Gynecology; Visit Provider Obstetrics & Gynecology
DX: N64.4 Mastodynia (principal); Z80.3 Family history of malignant neoplasm of breast
CPT/HCPCS: 77066; G0279

== ENCOUNTER → 2020-10-27 08:58 | Outpatient (CLI) | payer OTHER, SELFPAY ==
--- NOTE | 2020-10-27 08:59 | DI.RAD.S_ITS ---
PROCEDURE: XR LUMBAR SPINE 2-3V INDICATIONS: low back pain TECHNIQUE: 3 views of the lumbar spine were acquired. COMPARISON: [facility], CT, CT LUMBAR SPINE WO CON, 02/05/2019, 12:26. [facility], CR, XR LUMBAR SPINE 2-3V, 02/05/2019, 10:49. FINDINGS: Bones: 5 [id number] vertebrae are present. There is normal bony alignment. Moderate L3 vertebral body compression fracture is present, slightly increased compared to 02/05/2019. No suspicious bony lesions. Mild facet arthropathy at L3-L4, L4-L5 and L5-S1. Soft tissues: Overlying bowel gas pattern is normal. No suspicious soft tissue calcifications. IMPRESSION: 1. Moderate compression fracture of L3 appears slightly increased compared to 02/05/2019. 2. Mild facet arthropathy in the lower lumbar spine. Dictated by: Matthew Li M.D. on 10/27/2020 at 12:56 Approved by: Matthew Li M.D. on 10/27/2020 at 12:58
[2020-10-27 09:07] LABS: Bacteria Urine None Seen
[2020-10-27 09:24] LABS: Hemoglobin 13.8 g/dL (12.0-16.0); Mean Corpuscular HGB Conc 33.7 % (30-36); Mean Corpuscular Hemoglobin 30.6 PG (26-34); Mean Corpuscular Volume 90.7 fL (80-100); Platelet Count 211 X10^3/uL (150-400); Red Blood Cell Count 4.51 X10^6/uL (4.0-5.2); Red Cell Distribution Width 13.2 % (11.6-14.8); White Blood Cell Count 4.7 X10^3/uL (4.5-11.0)
[2020-10-27 09:47] LABS: Alanine Aminotransferase 22 IU/L (<35); Albumin 4.8 g/dL (3.5-5.0); Albumin Globulin Ratio 1.5 (1.0-2.8); Alkaline Phosphatase 70 U/L (38-126); Aspartate Aminotransferase 34 IU/L (14-36); BUN Creatinine Ratio 22.2 (6-22); Bilirubin Total 0.6 mg/dL (0.2-1.3); Blood Urea Nitrogen 16 mg/dL (7-17); Calcium 9.4 mg/dL (8.4-10.2); Carbon Dioxide 31 mmol/L (22-32); Chloride 102 mmol/L (98-107); Cholesterol 208 mg/dL (140-199); Estimated Glomerular Filt Rate > 60.0 mL/min (>60); Globulin 3.3 g/dL (1.7-4.1); Glucose 91 mg/dL (70-100); HDL Cholesterol 43 mg/dL (40-60); HEMOLYSIS < 15 (0-50); LDL Cholesterol Calculated 148 mg/dL (<100); Potassium 3.8 mmol/L (3.4-5.1); Sodium 139 mmol/L (137-145); Total Protein 8.1 g/dL (6.3-8.2); Triglycerides 83 mg/dL (35-150)
[2020-10-27 10:09] LABS: Free T4, Direct Thyroxine 1.31 ng/dL (0.78-2.19)
[2020-10-27 10:29] LABS: Appearance Urine UA CLEAR; Bilirubin Urine UA NEGATIVE (NEGATIVE); Color Urine UA YELLOW; Glucose Urine UA NEGATIVE (Negative); Ketones Urine UA NEGATIVE (NEGATIVE); Leukocyte Esterase Urine UA NEGATIVE (NEGATIVE); Nitrite Urine UA NEGATIVE (Negative); Occult Blood Urine UA 1+ (Negative); Protein Urine UA NEGATIVE (Negative); Urobilinogen Urine UA 0.2 E.U./dL (0.2)
[2020-10-27 11:54] LABS: Culture Indicated Urine Cult Not Indicated; RBC Urine 1-5/HPF (0-5/HPF); Squamous Epithelial Cell Urine 0-1 /HPF (0-5/HPF)
== END ==
PROVIDERS: PCP Nurse Practitioner Family; Referring Provider Nurse Practitioner Family; Visit Provider Nurse Practitioner Family
DX: Z00.00 Encounter for general adult medical examination without abnormal findings (principal); M54.5 Low back pain; E89.0 Postprocedural hypothyroidism; Z13.6 Encounter for screening for cardiovascular disorders
CPT/HCPCS: 36415; 72100; 80053; 80061; 81001; 84439; 84443; 85027

== ENCOUNTER → 2020-10-29 11:05 | Outpatient (CLI) | payer OTHER, SELFPAY ==
[2020-10-29 11:11] LABS: WBC Urine None Seen (0-5/HPF)
[2020-10-29 12:20] LABS: Appearance Urine UA CLEAR; Bilirubin Urine UA NEGATIVE (NEGATIVE); Color Urine UA YELLOW; Glucose Urine UA NEGATIVE (Negative); Ketones Urine UA NEGATIVE (NEGATIVE); Leukocyte Esterase Urine UA NEGATIVE (NEGATIVE); Nitrite Urine UA NEGATIVE (Negative); Occult Blood Urine UA TRACE-INTACT (Negative); Protein Urine UA NEGATIVE (Negative); Urobilinogen Urine UA 0.2 E.U./dL (0.2)
[2020-10-29 12:39] LABS: Bacteria Urine Occasional (0-1); Culture Indicated Urine Cult Not Indicated; RBC Urine 0-1/HPF (0-5/HPF)
== END ==
PROVIDERS: PCP Nurse Practitioner Family; Referring Provider Nurse Practitioner Family; Visit Provider Nurse Practitioner Family
DX: R31.9 Hematuria, unspecified (principal)
CPT/HCPCS: 81001

== ENCOUNTER → 2021-03-23 10:47 | Outpatient (CLI) | payer OTHER, SELFPAY ==
[2021-03-23 10:54] LABS: Bacteria Urine None Seen
[2021-03-23 13:15] LABS: Appearance Urine UA CLEAR; Bilirubin Urine UA NEGATIVE (NEGATIVE); Color Urine UA YELLOW; Glucose Urine UA NEGATIVE (Negative); Ketones Urine UA NEGATIVE (NEGATIVE); Leukocyte Esterase Urine UA NEGATIVE (NEGATIVE); Nitrite Urine UA NEGATIVE (Negative); Occult Blood Urine UA TRACE-LYSED (Negative); Protein Urine UA NEGATIVE (Negative); Urobilinogen Urine UA 0.2 E.U./dL (0.2)
[2021-03-23 13:16] LABS: pH Urine UA 5.5 (4.5-8.0)
[2021-03-23 13:28] LABS: Culture Indicated Urine Cult Not Indicated; RBC Urine 0-1/HPF (0-5/HPF); Squamous Epithelial Cell Urine 0-1 /HPF (0-5/HPF); WBC Urine 0-1/HPF (0-5/HPF)
== END ==
PROVIDERS: PCP Nurse Practitioner Family; Referring Provider Nurse Practitioner Family; Visit Provider Nurse Practitioner Family
DX: R31.21 Asymptomatic microscopic hematuria (principal)
CPT/HCPCS: 81001

== ENCOUNTER → 2021-04-13 11:36 | Outpatient (CLI) | payer OTHER, SELFPAY ==
[2021-04-13 12:56] LABS: Appearance Urine UA CLEAR; Bilirubin Urine UA NEGATIVE (NEGATIVE); Color Urine UA YELLOW; Glucose Urine UA NEGATIVE (Negative); Ketones Urine UA NEGATIVE (NEGATIVE); Leukocyte Esterase Urine UA NEGATIVE (NEGATIVE); Nitrite Urine UA NEGATIVE (Negative); Occult Blood Urine UA TRACE-INTACT (Negative); Protein Urine UA NEGATIVE (Negative); Urobilinogen Urine UA 0.2 E.U./dL (0.2)
[2021-04-13 13:29] LABS: Bacteria Urine Occasional (0-1); Culture Indicated Urine Cult Not Indicated; RBC Urine 0-1/HPF (0-5/HPF); Squamous Epithelial Cell Urine 0-1 /HPF (0-5/HPF); WBC Urine 0-1/HPF (0-5/HPF)
== END ==
PROVIDERS: PCP Nurse Practitioner Family; Referring Provider Nurse Practitioner Family; Visit Provider Nurse Practitioner Family
DX: R31.21 Asymptomatic microscopic hematuria (principal)
CPT/HCPCS: 81001

== ENCOUNTER → 2021-05-06 16:12 | Outpatient (CLI) | payer OTHER, SELFPAY ==
--- NOTE | 2021-05-06 | DI.MG.S_ITS ---
BILATERAL DIGITAL SCREENING MAMMOGRAM 3D/2D WITH CAD: 05/06/2021 CLINICAL: Routine screening. Family history of breast cancer. Comparison is made to exams dated: 05/05/2020 mammogram, 04/25/2019 mammogram - [facility], and 02/01/2017 mammogram - [facility]. The tissue of both breasts is heterogeneously dense. This may lower the sensitivity of mammography. Current study was also evaluated with a Computer Aided Detection (CAD) system. No significant masses, calcifications, or other findings are seen in either breast. There has been no significant interval change. IMPRESSION: NEGATIVE There is no mammographic evidence of malignancy. A 1 year screening mammogram is recommended. This exam was interpreted at Station ID: [id number]. NOTE: For mammograms, a report in lay terms will be sent to the patient. Approximately 15% of breast malignancies will not be visualized mammographically. In the management of a palpable breast mass, a negative mammogram must not discourage biopsy of a clinically suspicious lesion. Electronically Signed By: Aruna scales/palmer:05/07/2021 08:29:23 letter sent: Normal Exam ACR BI-RADS Category 1: Negative [id number]
== END ==
PROVIDERS: PCP Nurse Practitioner Family; Referring Provider Nurse Practitioner Family; Visit Provider Nurse Practitioner Family
DX: Z12.31 Encounter for screening mammogram for malignant neoplasm of breast (principal)
CPT/HCPCS: 77063; 77067

== ENCOUNTER → 2021-06-18 08:02 | Outpatient (CLI) | payer OTHER, SELFPAY ==
[2021-06-18 08:23] LABS: Hematocrit 38.6 % (36-46); Hemoglobin 13.1 g/dL (12.0-16.0); Mean Corpuscular HGB Conc 33.9 % (30-36); Mean Corpuscular Hemoglobin 30.3 PG (26-34); Mean Corpuscular Volume 89.6 fL (80-100); Platelet Count 194 X10^3/uL (150-400); Red Blood Cell Count 4.31 X10^6/uL (4.0-5.2); Red Cell Distribution Width 12.9 % (11.6-14.8); White Blood Cell Count 4.3 X10^3/uL (4.5-11.0)
[2021-06-18 08:50] LABS: Alanine Aminotransferase 18 IU/L (<35); Albumin 4.1 g/dL (3.5-5.0); Albumin Globulin Ratio 1.4 (1.0-2.8); Alkaline Phosphatase 65 U/L (38-126); Aspartate Aminotransferase 28 IU/L (14-36); BUN Creatinine Ratio 17.3 (6-22); Bilirubin Total 0.8 mg/dL (0.2-1.3); Blood Urea Nitrogen 13 mg/dL (7-17); Carbon Dioxide 33 mmol/L (22-32); Chloride 104 mmol/L (98-107); Cholesterol 202 mg/dL (140-199); Estimated Glomerular Filt Rate > 60.0 mL/min (>60); Globulin 2.9 g/dL (1.7-4.1); Glucose 88 mg/dL (80-110); HDL Cholesterol 44 mg/dL (40-60); HEMOLYSIS < 15 (0-50); LDL Cholesterol Calculated 141 mg/dL (<100); Potassium 3.8 mmol/L (3.4-5.1); Sodium 140 mmol/L (137-145); Triglycerides 84 mg/dL (35-150)
[2021-06-18 09:03] LABS: Vitamin D 25 Hydroxy (D3) 44.1 ng/mL (30.0-100.0)
[2021-06-18 09:21] LABS: Thyroid Stimulating Hormone 0.299 uIU/mL (0.47-4.68)
== END ==
PROVIDERS: PCP Nurse Practitioner Family; Referring Provider Nurse Practitioner Family; Visit Provider Nurse Practitioner Family
DX: Z00.00 Encounter for general adult medical examination without abnormal findings (principal); E89.0 Postprocedural hypothyroidism; E78.2 Mixed hyperlipidemia; Z87.81 Personal history of (healed) traumatic fracture
CPT/HCPCS: 36415; 80053; 80061; 82306; 84439; 84443; 85027

== ENCOUNTER → 2021-11-30 11:31 | Outpatient (CLI) | payer OTHER, SELFPAY ==
[2021-11-30 12:55] LABS: Cancer Antigen 125 6.4 U/mL (0-35)
== END ==
PROVIDERS: PCP Nurse Practitioner Family; Referring Provider Obstetrics & Gynecology; Visit Provider Obstetrics & Gynecology
DX: N83.201 Unspecified ovarian cyst, right side (principal); N83.202 Unspecified ovarian cyst, left side
CPT/HCPCS: 36415; 86304

== ENCOUNTER → 2022-02-07 12:27 | Outpatient (CLI) | payer OTHER, SELFPAY ==
--- NOTE | 2022-02-07 12:28 | DI.US.S_ITS ---
PROCEDURE: US PELVIC COMPLETE INDICATIONS: UNABLE TO VISUALIZE RIGHT OVARY ON PREVIOUS EXAM TECHNIQUE: Real-time scanning was performed of the pelvic organs, with image documentation. Additional endovaginal scanning was necessary due to incomplete visualization of the adnexal and endometrial structures by transabdominal scanning. COMPARISON: [facility], US, US PELVIC COMPLETE, 01/14/2020, 13:47. [facility], , US PELVIC COMPLETE, 11/30/2021, 11:26. FINDINGS: Uterus: Prior hysterectomy. Ovaries: Right ovary measures 3.0 x 3.4 x 1.6 cm in the left ovary measures 2.5 x 1.8 x 2.5 cm. Bilateral simple ovarian cyst are identified largest of which is on the right measuring up to 1.7 cm. Echogenic mass associated with the left ovary measuring 5 mm. Other: No pathologic free abdominal or pelvic fluid. IMPRESSION: 1. Bilateral simple ovarian cysts, largest of which is on the right measuring up to 1.6 cm. 2. Echogenic mass associated with the left ovary measuring 5 mm which could be a small dermoid tumor. 3 month follow-up ultrasound is recommended. We strive to produce accurate, complete, and clear reports of imaging services. To assist us in improving patient care, this report was composed using standard report templates and voice recognition software. Therefore, it may contain abnormal punctuation, insertions and/or omissions. Occasional wrong-word or sound-alike substitutions may occur. Though we review the report and make efforts to correct it, we do recommend that the report be read carefully in proper context to recognize any text inaccuracies. Dictated by: Lei Sanches [facility] Interpreted: Lora Herrera MD on 02/07/2022 at 16:47 Transcribed by: WINNIE on 02/07/2022 at 16:50 Approved by: Lora Herrera MD, PhD on 02/07/2022 at 17:37
== END ==
PROVIDERS: PCP Nurse Practitioner Family; Referring Provider Obstetrics & Gynecology; Visit Provider Obstetrics & Gynecology
DX: N83.292 Other ovarian cyst, left side (principal); N83.291 Other ovarian cyst, right side; N83.9 Noninflammatory disorder of ovary, fallopian tube and broad ligament, unspecified; Z80.41 Family history of malignant neoplasm of ovary
CPT/HCPCS: 76830; 76856

== ENCOUNTER → 2022-06-21 07:49 | Outpatient (CLI) | payer OTHER, SELFPAY ==
[2022-06-21 08:47] LABS: Add Manual Diff / Slide Review NO; Basophils Absolute Auto 0 /uL (0-100); Basophils Percent Auto 0.9 % (0-2); Eosinophils Absolute Auto 200 /uL (0-450); Eosinophils Percent Auto 3.6 % (2-4); Hematocrit 39.8 % (36-46); Hemoglobin 13.4 g/dL (12.0-16.0); Lymphocytes Absolute Auto 2100 /uL (1100-4500); Lymphocytes Percent Auto 44.8 % (25-40); Mean Corpuscular HGB Conc 33.7 % (30-36); Mean Corpuscular Volume 89.2 fL (80-100); Monocytes Absolute Auto 400 /uL (0-900); Neutrophils Absolute Auto 2000 /uL (1500-7000); Neutrophils Percent Auto 42.7 % (50-75); Platelet Count 195 X10^3/uL (150-400); Red Blood Cell Count 4.46 X10^6/uL (4.0-5.2); Red Cell Distribution Width 12.8 % (11.6-14.8); White Blood Cell Count 4.6 X10^3/uL (4.5-11.0)
[2022-06-21 09:33] LABS: Alanine Aminotransferase 24 IU/L (<35); Albumin 4.2 g/dL (3.5-5.0); Albumin Globulin Ratio 1.3 (1.0-2.8); Alkaline Phosphatase 79 U/L (38-126); Aspartate Aminotransferase 27 IU/L (14-36); BUN Creatinine Ratio 22.5 (6-22); Bilirubin Total 0.6 mg/dL (0.2-1.3); Blood Urea Nitrogen 16 mg/dL (7-17); Calcium 8.9 mg/dL (8.4-10.2); Carbon Dioxide 31 mmol/L (22-32); Chloride 103 mmol/L (98-107); Cholesterol 222 mg/dL (140-199); Estimated Glomerular Filt Rate > 60 mL/min (>60); Globulin 3.2 g/dL (1.7-4.1); Glucose 83 mg/dL (80-110); HDL Cholesterol 56 mg/dL (40-60); HEMOLYSIS < 15 (0-50); LDL Cholesterol Calculated 140 mg/dL (<100); Sodium 141 mmol/L (137-145); Total Protein 7.4 g/dL (6.3-8.2); Triglycerides 129 mg/dL (35-150)
[2022-06-21 09:39] LABS: Vitamin D 25 Hydroxy (D3) 34.6 ng/mL (30.0-100.0)
[2022-06-21 10:06] LABS: Free T3, Triiodothyronine Free 3.17 pg/mL (2.77-5.27); Free T4, Direct Thyroxine 1.54 ng/dL (0.78-2.19)
== END ==
PROVIDERS: PCP Family Medicine; Referring Provider Family Medicine; Visit Provider Family Medicine
DX: E78.2 Mixed hyperlipidemia (principal); E89.0 Postprocedural hypothyroidism
CPT/HCPCS: 36415; 80053; 80061; 82306; 84439; 84443; 84481; 85025

== ENCOUNTER → 2022-06-23 07:44 | Outpatient (CLI) | payer OTHER, SELFPAY ==
--- NOTE | 2022-06-23 07:45 | DI.MG.S_ITS ---
BILATERAL DIGITAL SCREENING MAMMOGRAM 3D/2D WITH CAD: 06/23/2022 CLINICAL: Routine screening. Family history of breast cancer. Comparison is made to exams dated: 05/06/2021 mammogram, 05/05/2020 mammogram, and 04/25/2019 mammogram - [facility]. Both breasts are heterogeneously dense, which may obscure small masses (category c / 51-75% glandular tissue). Current study was also evaluated with a Computer Aided Detection (CAD) system. No significant masses, calcifications, or other findings are seen in either breast. There has been no significant interval change. IMPRESSION: NEGATIVE There is no mammographic evidence of malignancy. A 1 year screening mammogram is recommended. Based on the Tyrer Cuzick model (a risk assessment model) the patient's lifetime risk is 12.2% and her 10 year risk is 5.2%. According to the ACR, ACS, and NCCN guidelines, an annual breast MRI exam along with mammogram is recommended if the patient's lifetime risk is 20% or greater. This exam was interpreted at Station ID: [id number]. NOTE: For mammograms, a report in lay terms will be sent to the patient. Approximately 15% of breast malignancies will not be visualized mammographically. In the management of a palpable breast mass, a negative mammogram must not discourage biopsy of a clinically suspicious lesion. Electronically Signed By: Aruna scales/palmer:06/23/2022 13:21:57 letter sent: Normal Exam ACR BI-RADS Category 1: Negative 3341F
== END ==
PROVIDERS: PCP Family Medicine; Referring Provider Family Medicine; Visit Provider Family Medicine
DX: Z12.31 Encounter for screening mammogram for malignant neoplasm of breast (principal); Z80.3 Family history of malignant neoplasm of breast
CPT/HCPCS: 77063; 77067

== ENCOUNTER → 2023-03-16 16:09 | Outpatient (CLI) | payer OTHER, SELFPAY ==
--- NOTE | 2023-03-16 16:11 | DI.US.S_ITS ---
PROCEDURE: US PELVIC COMPLETE INDICATIONS: 6mo f/u US for an ovarian cyst TECHNIQUE: Real-time scanning was performed of the pelvic organs, with image documentation. Additional endovaginal scanning was necessary due to incomplete visualization of the adnexal and endometrial structures by transabdominal scanning. COMPARISON: [facility], US, US PELVIC COMPLETE, 02/07/2022, 13:57. FINDINGS: Uterus: Surgically absent Ovaries: The right ovary measures 4.0 x 2.7 x 2.8 cm, with a calculated ovarian volume of 15.7 cc. The left ovary measures 2.9 x 1.9 x 2.1 cm, with a calculated ovarian volume of 5.9 cc. The ovaries have a normal sonographic appearance. There are multiple bilateral simple ovarian cysts. The largest right ovarian cyst measures 2.1 x 1.8 x 1.5 cm. The largest left cyst measures 1.5 x 1.3 x 1.4 cm. No adnexal masses are seen. Other: No pathologic free abdominal or pelvic fluid. IMPRESSION: Multiple bilateral ovarian cysts. No suspicious sonographic features. Annual sonographic follow-up is recommended per cysts over 1 cm in diameter in a postmenopausal patient. We strive to produce accurate, complete, and clear reports of imaging services. To assist us in improving patient care, this report was composed using standard report templates and voice recognition software. Therefore, it may contain abnormal punctuation, insertions and/or omissions. Occasional wrong-word or sound-alike substitutions may occur. Though we review the report and make efforts to correct it, we do recommend that the report be read carefully in proper context to recognize any text inaccuracies. Dictated by: Valerie Barber M.D. on 03/17/2023 at 14:58 Approved by: Valerie Barber M.D. on 03/17/2023 at 15:01
== END ==
PROVIDERS: PCP Family Medicine; Referring Provider Family Medicine; Visit Provider Family Medicine
DX: N83.291 Other ovarian cyst, right side (principal); N83.292 Other ovarian cyst, left side; D25.9 Leiomyoma of uterus, unspecified; Z80.41 Family history of malignant neoplasm of ovary
CPT/HCPCS: 76830; 76856; 93976

== ENCOUNTER → 2023-03-21 11:58 | Outpatient (CLI) | payer OTHER, SELFPAY ==
--- NOTE | 2023-03-21 | DI.MG.S_ITS ---
BILATERAL DIGITAL DIAGNOSTIC MAMMOGRAM 3D/2D: 03/21/2023 CLINICAL: Left breast lump, due bilat. Comparison is made to exams dated: 06/23/2022 mammogram, 05/06/2021 mammogram, and 05/05/2020 mammogram - [facility]. Both breasts are heterogeneously dense, which may obscure small masses (category c / 51-75% glandular tissue). No significant masses, calcifications, or other findings are seen in either breast. IMPRESSION: INCOMPLETE: NEEDS ADDITIONAL IMAGING EVALUATION No mammographic evidence of malignancy. A targeted ultrasound is recommended and will immediately follow. Based on the Tyrer Cuzick model (a risk assessment model) the patient's lifetime risk is 12.2% and her 10 year risk is 5.2%. According to the ACR, ACS, and NCCN guidelines, an annual breast MRI exam along with mammogram is recommended if the patient's lifetime risk is 20% or greater. This exam was interpreted at Station ID: [id number]. NOTE: For mammograms, a report in lay terms will be sent to the patient. Approximately 15% of breast malignancies will not be visualized mammographically. In the management of a palpable breast mass, a negative mammogram must not discourage biopsy of a clinically suspicious lesion. Electronically Signed By: Alfonso Lorenzo M.D. slc/:03/21/2023 12:41:11 ACR BI-RADS Category 0: Incomplete 3340F
--- NOTE | 2023-03-21 11:59 | DI.US.S_ITS ---
LIMITED ULTRASOUND OF LEFT BREAST AND AXILLA: 03/21/2023 CLINICAL: Palpable left breast lump. Comparison is made to exams dated: 03/21/2023 mammogram, 06/23/2022 mammogram, 05/05/2020 mammogram, 04/25/2019 mammogram, 04/25/2019 ultrasound [facility], and 03/15/2013 ultrasound - [facility]. Color flow and real-time ultrasound of the left breast 2 o'clock, 12 o'clock, and axilla regions were performed. Stewart scale images of the real-time examination were reviewed. There is a 1 cm x 0.9 cm x 0.5 cm oval mass with a circumscribed margin in the left breast at 2 o'clock anterior depth 1 cm from the nipple. This oval mass is hypoechoic with a well-defined boundary and posterior acoustic enhancement. This correlates as palpated but was not seen on the prior mammogram. Color flow imaging demonstrates that there is no vascularity present. No significant abnormalities were seen sonographically in the 12:00 region or the left axilla. IMPRESSION: PROBABLY BENIGN The 1 cm circumscribed mass or complicated cyst in the left breast 2:00 is probably benign. This most likely represents a fibroadenoma or complicated cyst. Exam findings were discussed with the patient. Patient is advised to monitor for significant change. Patient was offered ultrasound guided biopsy vs imaging follow-up, and opted for imaging follow-up. Remote ultrasound from 2012, demonstrates similar appearing multiple masses or cysts in the left breast. No abnormality at the 12:00 at palpable site. No enlarged left axillary lymph nodes. A follow-up ultrasound in 6 months is recommended to demonstrate stability. This exam was interpreted at Station ID: [id number]. Electronically Signed By: Alfonso Lorenzo M.D. [facility] [place]/:03/23/2023 10:21:24 letter sent: Followup Recommended Ultrasound BI-RADS: 3 Probably benign
== END ==
PROVIDERS: PCP Family Medicine; Referring Provider Family Medicine; Visit Provider Family Medicine
DX: N63.22 Unspecified lump in the left breast, upper inner quadrant (principal); R92.2 Inconclusive mammogram
CPT/HCPCS: 76642; 77066; G0279

== ENCOUNTER → 2023-03-22 10:32 | Outpatient (CLI) | payer OTHER, SELFPAY ==
[2023-03-22 12:44] LABS: Thyroid Stimulating Hormone 0.349 uIU/mL (0.47-4.68)
== END ==
PROVIDERS: PCP Family Medicine; Referring Provider Family Medicine; Visit Provider Family Medicine
DX: E78.2 Mixed hyperlipidemia (principal); E89.0 Postprocedural hypothyroidism
CPT/HCPCS: 36415; 84443

== ENCOUNTER → 2023-06-28 10:33 | Outpatient (CLI) | payer OTHER, SELFPAY ==
[2023-06-28 11:54] LABS: High Sensitivity CRP - Cardiac 0.8 mg/L (1.0-3.0)
[2023-06-28 11:57] LABS: Free T3, Triiodothyronine Free 2.73 pg/mL (2.77-5.27); Free T4, Direct Thyroxine 0.89 ng/dL (0.78-2.19)
[2023-06-28 12:10] LABS: Thyroid Stimulating Hormone 6.27 uIU/mL (0.47-4.68)
== END ==
PROVIDERS: PCP Family Medicine; Referring Provider Family Medicine; Visit Provider Family Medicine
DX: E78.2 Mixed hyperlipidemia (principal); E89.0 Postprocedural hypothyroidism
CPT/HCPCS: 36415; 84439; 84443; 84481; 86140

== ENCOUNTER → 2023-12-07 07:38 | Outpatient (CLI) | payer OTHER, SELFPAY ==
[2023-12-07 08:58] LABS: Vitamin D 25 Hydroxy (D3) 81.4 ng/mL (30.0-100.0)
[2023-12-07 09:00] LABS: Alanine Aminotransferase 17 IU/L (<35); Albumin 4.6 g/dL (3.5-5.0); Albumin Globulin Ratio 1.6 (1.0-2.8); Alkaline Phosphatase 72 U/L (38-126); Aspartate Aminotransferase 25 IU/L (14-36); BUN Creatinine Ratio 17.6 (6-22); Bilirubin Total 0.5 mg/dL (0.2-1.3); Blood Urea Nitrogen 13 mg/dL (7-17); Calcium 9.1 mg/dL (8.4-10.2); Carbon Dioxide 28 mmol/L (22-32); Chloride 105 mmol/L (98-107); Cholesterol 232 mg/dL (140-199); Estimated Glomerular Filt Rate > 60 mL/min (>60); Globulin 2.8 g/dL (1.7-4.1); Glucose 83 mg/dL (80-110); HDL Cholesterol 51 mg/dL (40-60); HEMOLYSIS < 15 (0-50); LDL Cholesterol Calculated 167 mg/dL (<100); Sodium 138 mmol/L (137-145); Total Protein 7.4 g/dL (6.3-8.2); Triglycerides 69 mg/dL (35-150)
[2023-12-07 09:04] LABS: High Sensitivity CRP - Cardiac < 0.3 mg/L (1.0-3.0)
[2023-12-07 09:10] LABS: Bacteria Urine None Seen; Culture Indicated Urine Cult Not Indicated; RBC Urine None Seen (0-5/HPF); Squamous Epithelial Cell Urine None Seen (0-5/HPF); Urine Volume 10mL (spun); WBC Urine None Seen (0-5/HPF)
[2023-12-07 09:16] LABS: Free T3, Triiodothyronine Free 3.02 pg/mL (2.77-5.27); Free T4, Direct Thyroxine 1.12 ng/dL (0.78-2.19)
[2023-12-07 09:29] LABS: Thyroid Stimulating Hormone 6.73 uIU/mL (0.47-4.68)
== END ==
PROVIDERS: PCP Family Medicine; Referring Provider Family Medicine; Visit Provider Family Medicine
DX: R31.9 Hematuria, unspecified (principal); E78.2 Mixed hyperlipidemia; E89.0 Postprocedural hypothyroidism; E55.9 Vitamin D deficiency, unspecified
CPT/HCPCS: 36415; 80053; 80061; 81015; 82306; 84439; 84443; 84481; 86140

== ENCOUNTER → 2024-01-09 09:07 | Outpatient (CLI) | payer OTHER, SELFPAY ==
--- NOTE | 2024-01-09 09:09 | DI.US.S_ITS ---
LIMITED ULTRASOUND OF LEFT BREAST: 01/09/2024 CLINICAL: Late 6 month follow-up of fibroadenoma. Comparison is made to exams dated: 03/21/2023 ultrasound, 03/21/2023 mammogram, and 06/23/2022 mammogram - [facility]. Color flow, real-time, and continuous wave Doppler ultrasound of the left breast 2 o'clock region were performed. There is a stable 1 cm x 0.9 cm x 0.5 cm oval mass with a circumscribed margin in the left breast at 1 o'clock anterior depth 1 cm from the nipple. This oval mass is hypoechoic with a well-defined boundary and posterior acoustic enhancement. Color flow imaging demonstrates that there is no vascularity present. IMPRESSION: PROBABLY BENIGN The 1 cm oval mass in the left breast resembles a complicated cyst or a fibroadenoma is stable and is probably benign. A follow-up left ultrasound in 6 months is recommended to demonstrate continued stability. Findings and recommendations were conveyed to the patient at time of exam. This exam was interpreted at Station ID: [id number]. Electronically Signed By: Aruna scales/:01/09/2024 10:03:02 letter sent: Followup Recommended Ultrasound BI-RADS: 3 Probably benign
== END ==
PROVIDERS: PCP Family Medicine; Referring Provider Family Medicine; Visit Provider Family Medicine
DX: R92.8 Other abnormal and inconclusive findings on diagnostic imaging of breast (principal); N63.21 Unspecified lump in the left breast, upper outer quadrant
CPT/HCPCS: 76642

== ENCOUNTER → 2024-04-12 13:42 | Outpatient (CLI) | payer BC, SELFPAY ==
--- NOTE | 2024-04-12 13:43 | DI.US.S_ITS ---
PROCEDURE: US PELVIC COMPLETE INDICATIONS: FOLLOW UP OVARIAN CYSTS TECHNIQUE: Real-time scanning was performed of the pelvic organs, with image documentation. Additional endovaginal scanning was necessary due to incomplete visualization of the adnexal and endometrial structures by transabdominal scanning. COMPARISON: [facility], , US PELVIC COMPLETE, 03/16/2023, 16:28. FINDINGS: Uterus: Uterus is surgically absent. The vaginal cuff is unremarkable. Ovaries: The right ovary measures 3.4 x 2.0 x 2.1 cm, with a calculated ovarian volume of 7.5 cc. The left ovary measures 3.4 x 3.5 x 1.7 cm, with a calculated ovarian volume of 10.6 cc. Both ovaries demonstrate a multi follicular echotexture. The right ovary contains three dominant follicles with the largest measuring up to 1.9 cm. The ovary also demonstrates scattered punctate echogenic reflectors. No coarse calcification or suspicious shadow. The left ovary also contains multiple follicles, the largest measuring 1.6 cm. No suspicious internal complexity. Less than 12 follicles can be seen in each ovary. No adnexal masses are seen. Other: No pathologic free abdominal or pelvic fluid. Incidental note is made of a large postvoid residual in the urinary bladder of 152 cc. IMPRESSION: Multiple bilateral ovarian follicles, likely functional. Annual follow-up recommended. Surgically absent uterus. We strive to produce accurate, complete, and clear reports of imaging services. To assist us in improving patient care, this report was composed using standard report templates and voice recognition software. Therefore, it may contain abnormal punctuation, insertions and/or omissions. Occasional wrong-word or sound-alike substitutions may occur. Though we review the report and make efforts to correct it, we do recommend that the report be read carefully in proper context to recognize any text inaccuracies. Dictated by: Aruna Aquino M.D. on 04/12/2024 at 15:20 Approved by: Aruna Aquino M.D. on 04/12/2024 at 15:30
== END ==
PROVIDERS: PCP Family Medicine; Referring Provider Family Medicine; Visit Provider Family Medicine
DX: N83.201 Unspecified ovarian cyst, right side (principal); N83.202 Unspecified ovarian cyst, left side; Z90.710 Acquired absence of both cervix and uterus
CPT/HCPCS: 76830; 76856

== ENCOUNTER → 2024-05-02 10:17 | Outpatient (CLI) | payer BC, SELFPAY ==
[2024-05-02 11:32] LABS: Free T4, Direct Thyroxine 0.93 ng/dL (0.78-2.19)
[2024-05-02 11:45] LABS: Thyroid Stimulating Hormone 3.81 uIU/mL (0.47-4.68)
== END ==
LOC: LAB 10:18
PROVIDERS: PCP Family Medicine; Referring Provider Family Medicine; Visit Provider Family Medicine
DX: E89.0 Postprocedural hypothyroidism (principal)
CPT/HCPCS: 36415; 84439; 84443; 84481

== ENCOUNTER → 2024-06-25 10:07 | Outpatient (CLI) | payer BC, SELFPAY ==
--- NOTE | 2024-06-25 | DI.MG.S_ITS ---
BILATERAL DIGITAL DIAGNOSTIC MAMMOGRAM 3D/2D: 06/25/2024 CLINICAL: 1 year follow up for stability. Comparison is made to exams dated: 01/09/2024 ultrasound, 03/21/2023 ultrasound, 03/21/2023 mammogram, 06/23/2022 mammogram, 05/06/2021 mammogram, and 05/05/2020 mammogram - [facility]. The breasts are heterogeneously dense, which may obscure small masses (category c / 51-75% glandular tissue). No significant masses, calcifications, or other findings are seen in either breast. Specifically, no finding to correspond to the patient's left breast ultrasound finding. IMPRESSION: INCOMPLETE: NEED ADDITIONAL IMAGING EVALUATION Bilateral mammograms are stable. No new mammographic finding of malignancy. Ultrasound to document stability of an ultrasound-only finding in the left breast is recommended and was performed immediately following this exam. Based on the Tyrer Cuzick model (a risk assessment model) the patient's lifetime risk is 11.6% and her 10 year risk is 5.2%. According to the ACR, ACS, and NCCN guidelines, an annual breast MRI exam along with mammogram is recommended if the patient's lifetime risk is 20% or greater. This exam was interpreted at Station ID: [id number]. NOTE: For mammograms, a report in lay terms will be sent to the patient. Approximately 15% of breast malignancies will not be visualized mammographically. In the management of a palpable breast mass, a negative mammogram must not discourage biopsy of a clinically suspicious lesion. Electronically Signed By: Aruna scales/:06/25/2024 10:51:00 Entry: - 06/26/2024 11:25:18 letter sent: Additional Imaging Needed ACR BI-RADS Category 0: Incomplete: Need Additional Imaging Evaluation
--- NOTE | 2024-06-25 | DI.US.S_ITS ---
LIMITED ULTRASOUND OF LEFT BREAST: 06/25/2024 CLINICAL: 6 month follow-up of mass. No prior exams were available for comparison. Color flow and real-time ultrasound of the left breast 2 o'clock region were performed. Stewart scale images of the real-time examination were reviewed. There is a stable 0.9 cm x 0.9 cm x 0.5 cm oval mass with a circumscribed margin in the left breast at 1 o'clock middle depth 1 cm from the nipple. This oval mass is hypoechoic with a well-defined boundary and posterior acoustic enhancement. This was not seen on the mammogram. Color flow imaging demonstrates that there is no vascularity present. IMPRESSION: PROBABLY BENIGN The 0.9 cm oval mass in the left breast most likely is a fibroadenoma, is stable, and is probably benign. A follow-up left ultrasound in 12 months is recommended. The patient will be due for bilateral mammograms at that same visit. Findings and recommendations were conveyed to the patient at time of exam. This exam was interpreted at Station ID: [id number]. Electronically Signed By: Aruna scales/:06/25/2024 11:25:47 letter sent: Followup Recommended ACR BI-RADS Category 3: Probably Benign
== END ==
PROVIDERS: PCP Family Medicine; Referring Provider Family Medicine; Visit Provider Family Medicine
DX: R92.8 Other abnormal and inconclusive findings on diagnostic imaging of breast (principal); R92.333 Mammographic heterogeneous density, bilateral breasts
CPT/HCPCS: 76642; 77066; G0279

== ENCOUNTER → 2024-10-31 09:53 | Outpatient (CLI) | payer BC, SELFPAY ==
--- NOTE | 2024-10-31 09:55 | DI.RAD.S_ITS ---
PROCEDURE: XR DEXA AXIAL SKELETON INDICATIONS: MENOPAUSE COMPARISON: [facility], CR, XR DEXA AXIAL SKELETON, 07/30/2019, 12:59. FINDINGS: Lumbar Spine: Bone mineral density 0.963 (previously 1.109) g/cm2, T score -0.8 (previously-0.6). Left Femoral Neck: Bone mineral density 0.744 (previously 0.984) g/cm2, T score -0.9 (previously-0.4). Left Hip: Bone mineral density 0.939 (previously 1.078) g/cm2, T score 0.0 (previously 0.6). Fracture Risk Calculation (when applicable): 10-year fracture risk of a major osteoporotic fracture 12 percent and of a hip fracture 0.8 percent. (T score greater or equal to -1.0 to: NORMAL) (T score from -1.1 to -2.4: OSTEOPENIA) (T score less than or equal to -2.5: OSTEOPOROSIS) IMPRESSION: Normal---recommend repeat DEXA as clinically indicated. Follow-up guidelines as follows: Osteoporosis: Consider a repeat DEXA and Vertebral Fracture Assessment (VFA) exam in 2 years or sooner if medically necessary, to reassess this patient's status. Osteopenia: Consider a repeat DEXA in 2-3 years to reassess this patient's status, or if there is a new clinical indication. Normal: Consider a repeat DEXA in 5 years or sooner, or if there is a new clinical indication. All treatment decisions require clinical judgment and consideration of individual patient factors, including patient preferences, comorbidities, previous drug use, risk factors not captured in the FRAX model (e.g., frailty, falls, vitamin D deficiency, increased bone turnover, interval significant decline in bone density ) and possible under- or over-estimation of fracture risk by FRAX. In addition, the NOF Guide recommends that FDA-approved medical therapies be considered in postmenopausal women and men age >= 50 years with a: * Hip or vertebral (clinical or morphometric) fracture * T-score of <=-2.5 at the spine or hip * Ten-year fracture probability by FRAX of >= 3% for hip fracture or >=20% for major osteoporotic fracture. Dictated by: Kyle John M.D. on 10/31/2024 at 19:37 Approved by: Kyle John M.D. on 10/31/2024 at 19:39
== END ==
PROVIDERS: PCP Family Medicine; Referring Provider Family Medicine; Visit Provider Family Medicine
DX: Z78.0 Asymptomatic menopausal state (principal); E78.00 Pure hypercholesterolemia, unspecified; G40.909 Epilepsy, unspecified, not intractable, without status epilepticus; E89.0 Postprocedural hypothyroidism
CPT/HCPCS: 77080

== ENCOUNTER → 2024-11-19 09:15 | Outpatient (CLI) | payer BC, SELFPAY ==
[2024-11-19 10:01] LABS: Appearance Urine UA CLEAR; Bilirubin Urine UA NEGATIVE (NEGATIVE); Color Urine UA YELLOW; Glucose Urine UA NEGATIVE (Negative); Ketones Urine UA NEGATIVE (NEGATIVE); Leukocyte Esterase Urine UA 1+ (NEGATIVE); Nitrite Urine UA NEGATIVE (Negative); Occult Blood Urine UA NEGATIVE (Negative); Protein Urine UA NEGATIVE (Negative); Urobilinogen Urine UA 0.2 E.U./dL (0.2)
[2024-11-19 10:04] LABS: Add Manual Diff / Slide Review NO; Basophils Absolute Auto 0 /uL (0-100); Basophils Percent Auto 0.6 % (0-2); Eosinophils Absolute Auto 100 /uL (0-450); Eosinophils Percent Auto 1.3 % (2-4); Hematocrit 42.3 % (36-46); Hemoglobin 14.1 g/dL (12.0-16.0); Lymphocytes Absolute Auto 2200 /uL (1100-4500); Lymphocytes Percent Auto 30.7 % (25-40); Mean Corpuscular HGB Conc 33.5 % (30-36); Mean Corpuscular Hemoglobin 31.1 PG (26-34); Mean Corpuscular Volume 92.8 fL (80-100); Monocytes Absolute Auto 400 /uL (0-900); Monocytes Percent Auto 6.2 % (3-14); Neutrophils Absolute Auto 4400 /uL (1500-7000); Neutrophils Percent Auto 61.2 % (50-75); Platelet Count 245 X10^3/uL (150-400); Red Blood Cell Count 4.55 X10^6/uL (4.0-5.2); Red Cell Distribution Width 13.6 % (11.6-14.8); White Blood Cell Count 7.1 X10^3/uL (4.5-11.0)
[2024-11-19 10:14] LABS: pH Urine UA 6.5 (4.5-8.0)
[2024-11-19 10:26] LABS: Bacteria Urine None Seen; Culture Indicated Urine Specimen Cultured; RBC Urine None Seen (0-5/HPF); Squamous Epithelial Cell Urine 0-1 /HPF (0-5/HPF); Urine Volume 10mL (spun); WBC Urine None Seen (0-5/HPF)
[2024-11-19 10:41] LABS: Alanine Aminotransferase 20 IU/L (<35); Albumin 4.8 g/dL (3.5-5.0); Albumin Globulin Ratio 1.7 (1.0-2.8); Alkaline Phosphatase 57 U/L (38-126); Aspartate Aminotransferase 29 IU/L (14-36); BUN Creatinine Ratio 20.7 (6-22); Bilirubin Total 1.1 mg/dL (0.2-1.3); Blood Urea Nitrogen 17 mg/dL (7-17); Calcium 9.5 mg/dL (8.4-10.2); Carbon Dioxide 26 mmol/L (22-32); Chloride 101 mmol/L (98-107); Estimated Glomerular Filt Rate > 60 mL/min (>60); Globulin 2.8 g/dL (1.7-4.1); Glucose 89 mg/dL (80-110); HDL Cholesterol 56 mg/dL (40-60); HEMOLYSIS < 15 (0-50); Sodium 135 mmol/L (137-145); Total Protein 7.6 g/dL (6.3-8.2)
[2024-11-19 10:42] LABS: Cholesterol 236 mg/dL (140-199); LDL Cholesterol Calculated 161 mg/dL (<100); Triglycerides 94 mg/dL (35-150)
[2024-11-19 10:53] LABS: Free T3, Triiodothyronine Free 3.08 pg/mL (2.77-5.27); Free T4, Direct Thyroxine 0.95 ng/dL (0.78-2.19)
[2024-11-19 11:06] LABS: Thyroid Stimulating Hormone 6.35 uIU/mL (0.47-4.68)
[2024-11-20 03:39] LABS: Apolipoprotein B 119 mg/dL (<90); CRP, High Sensitivity 0.83 mg/L (0.00-3.00)
[2024-11-21 03:08] LABS: Lipoprotein (a) 183.7 nmol/L (<75.0)
== END ==
PROVIDERS: PCP Family Medicine; Referring Provider Family Medicine; Visit Provider Family Medicine
DX: R35.0 Frequency of micturition (principal); E89.0 Postprocedural hypothyroidism; G47.00 Insomnia, unspecified; N95.1 Menopausal and female climacteric states; E78.00 Pure hypercholesterolemia, unspecified; G40.909 Epilepsy, unspecified, not intractable, without status epilepticus; Z78.0 Asymptomatic menopausal state; E78.2 Mixed hyperlipidemia
CPT/HCPCS: 36415; 80053; 80061; 81001; 82172; 83695; 84439; 84443; 84481; 85025; 86140; 87086

== ENCOUNTER → 2025-01-21 15:06 | Outpatient (CLI) | payer BC, SELFPAY ==
--- NOTE | 2025-01-21 | DI.RAD.S_ITS ---
PROCEDURE: ORTHO-XR FOOT 3V WB RIGHT INDICATIONS: BILAT FOOT PAIN TECHNIQUE: 3 weight-bearing views acquired of the foot. COMPARISON: None. 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 There is a juxta-articular erosion in the right medial 1st MTP region Joints: Mild degeneration 1st MTP and 2nd through 5th interphalangeal joints Soft tissues: Calcification Achilles tendon insertion on the calcaneus IMPRESSION: Chronic findings as described. Juxta-articular erosion in the medial 1st MTP joint. Please correlate with uric acid to ensure the absence of gout Dictated by: Peyman Shook M.D. on 01/22/2025 at 10:13 Approved by: Peyman Shook M.D. on 01/22/2025 at 10:15
--- NOTE | 2025-01-21 | DI.RAD.S_ITS ---
PROCEDURE: ORTHO-XR FOOT 3V WB LEFT COMPARISON: None. INDICATIONS: BILAT FOOT PAIN FINDINGS: Bones: Minimal hallux valgus metatarsus abductus and pes planus noted. Joints: The joint spaces are normal in width and alignment without arthritic change. Soft tissues: Minor calcification Achilles tendon insertion on the calcaneus. IMPRESSION: Chronic findings as described Dictated by: Peyman Shook M.D. on 01/22/2025 at 10:12 Approved by: Peyman Shook M.D. on 01/22/2025 at 10:13
== END ==
PROVIDERS: PCP Family Medicine; Referring Provider Family Medicine; Visit Provider Podiatrist Foot & Ankle Surgery
DX: M20.11 Hallux valgus (acquired), right foot (principal); M85.871 Other specified disorders of bone density and structure, right ankle and foot; M65.871 Other synovitis and tenosynovitis, right ankle and foot; M79.672 Pain in left foot; M79.671 Pain in right foot; E89.0 Postprocedural hypothyroidism
CPT/HCPCS: 36415; 73630; 84443

== ENCOUNTER → 2025-01-21 16:46 | Outpatient (CLI) | payer BC, SELFPAY ==
[2025-01-21 17:41] LABS: TSH w/ Reflex to FT4 2.53 uIU/mL (0.47-4.68)
== END ==
PROVIDERS: PCP Family Medicine; Referring Provider Family Medicine; Visit Provider Family Medicine
DX: E89.0 Postprocedural hypothyroidism (principal)
CPT/HCPCS: 36415; 84443